=== PATIENT | male | born 1985 | race Caucasian/White ===

== ENCOUNTER 2020-12-08 18:06 | Inpatient (IN) | payer OTHER ==
[~2020-12-08] VITALS: Ht 177.8 cm; Wt 120.0 kg
--- NOTE | 2020-12-08 18:06 | NUR ---
PATIENT TO ROOM VIA EMS AND PHYSICIAN NOTIFIED OF PATIENT STATUS
[2020-12-08 18:55] LABS: HEMATOCRIT 39.7 % (39.0-50.0); IMMATURE GRANULOCYTES 0.6 % (0.0-5.0); MEAN CELL VOLUME 83.8 fL CALC (80.0-100.0); MEAN CORPUSCULAR HGB 29.5 pG CALC (26.0-32.0); MEAN CORPUSCULAR HGB CONC 35.3 g/dL CAL (32.0-36.0); NEUT# 4.47 thou/uL (1.82-7.42); RED BLOOD COUNT 4.74 mill/uL (4.70-6.10); RED CELL DISTRI WIDTH 13.1 % (11.5-15.5)
--- NOTE | 2020-12-08 18:55 | NUR ---
PATIENT IN BED ON NONREBREATHER. REPORT TO NEXT SHIFT RN.
--- NOTE | 2020-12-08 19:05 | NUR ---
OCC HENNY PHARMACEUTICAL SCIENTIST COUGH W/P/W SKIN ST NO ST T CHANGES.PT HAS PULLED OUT HIS RAC SALINE LOC.NEW IV SALINE LOCKS X2 IN L HAND AND L AC.PT SLOW TO VERBALLY RESPOND BUT RESPONSES ARE APPROP.NO WHEEZE NO DYSPNEA.
[2020-12-08 19:12] LABS: D-DIMER 1.3 mg/L (0.19-0.60)
[2020-12-08 19:13] LABS: ALBUMIN 3.6 g/dL (3.2-5.0); ALKALINE PHOSPHATASE 53 u/l (38-126); ANION GAP 15 (6-22 (CALC)); BILIRUBIN, TOTAL 0.8 mg/dL (0.0-1.4); BUN 14 mg/dL (9-20); BUN/CREATININE RATIO 19 (12-20 (CALC)); CARBON DIOXIDE 19 mmol/l (22-30); CHLORIDE 95 mmol/l (95-108); CREATININE 0.7 mg/dL (0.7-1.3); GFR > 60 ML/MIN (>=60 (CALC)); GFR FOR AFR.AMER. > 60 ML/MIN (>=60 (CALC)); LIPASE 153 u/l (23-300); MAGNESIUM 1.8 mg/dL (1.6-2.3); POTASSIUM 3.8 mmol/l (3.5-5.1); SGOT/AST 647 u/l (17-59); SODIUM 124 mmol/l (137-146); TOTAL PROTEIN 6.8 g/dL (6.3-8.2)
[2020-12-08 19:15] LABS: INTERNATIONAL NORMALIZED RATIO 1.2 RATIO (0.7-1.3); PROTHROMBIN TIME 12.2 SECONDS (9.0-12.5)
[2020-12-08 19:36] LABS: C-REACTIVE PROTEIN 18.1 mg/dL (0-0.9)
--- NOTE | 2020-12-08 20:25 | NUR ---
I ACCOMPANIED PT TO CT PT IS ON 100% NR MASK W/P/D SKIN PT COOPERATIVE IN MOVING TO CT STRETCHER.NO RESP DIFF WITH EXERTION NO COUGH.
[2020-12-08 20:30] LABS: CPK 24614 u/l (52-200)
--- NOTE | 2020-12-08 21:37 | NUR ---
PT CAUTIONED NOT TO PULL HIS MASK OFF SEVERAL TIMES.N5R NO TACHY RHYTHM.NO RESP DIFF.OCC COMMERCIAL PORTFOLIO MANAGER COUGH
[2020-12-08] MEDS ORDERED: LIPITOR20 M1 PO (21:41)
[2020-12-08] MEDS ORDERED: VIMPAT100 MG PO (21:41)
[2020-12-08] MEDS ORDERED: ZESTRIL10 M1 PO (21:42)
[2020-12-08] MEDS ORDERED: KEPPRA750 M2 PO (21:43)
[2020-12-08] MEDS ORDERED: PHENYTOIN EX100 M1 PO (21:44)
--- NOTE | 2020-12-08 22:40 | NUR ---
W/P/D SKIN A/O PT CAUTIONED NOT TO PICK AT HIS IV SITES.COOPERATES.
--- NOTE | 2020-12-08 22:45 | NUR ---
PHONE REPORT TO NURSE GALLEGOS IN ICU PT TRANSPORTED TO ICURM 8 IN IMPROVED STABLE CONDITION
--- NOTE | 2020-12-08 23:05 | NUR ---
35 year old male admitted to icu 8 per stretcher from er. stood to void without success then to bed in the prone position. sister is also admitted to this unit & said he was "special needs." o2 cont 100% nrb. pt needs several reminders to keep on. cafeteria monitor shows sinus rhythm hr 92. meds given & ivf began as ordered. history obtained per er record. fall & air/contact precautions cont.
[2020-12-08 23:15] VITALS: BP 115/71
--- NOTE | 2020-12-08 23:55 | NUR ---
pt turned self onto back. sao2 94%.
[2020-12-09] VITALS (18 sets, daily range): BP systolic 98–157; BP diastolic 62–90
--- NOTE | 2020-12-09 02:00 | NUR ---
removes nrb freq. requires freq observation as he is mentally challenged.
--- NOTE | 2020-12-09 04:00 | NUR ---
has been removing bp cuff & nrb freq. sao2 84-87%. rt notified.
--- NOTE | 2020-12-09 04:27 | NUR ---
respiratory was called and came with the Vapo. Patient on NRM with mask under his chin. The mask was placed back on his face. Spo2 went up to 91%. Patient keeps taking the mask off. Will need restraints to be able to wear the NRB. If unable to maintain spo2 above 86%, We will have to provide BIPAP/CPAP for him. Because of his condition, will be difficult to place him on vapo. He will not leave it on because of the noise
--- NOTE | 2020-12-09 06:00 | NUR ---
has frequently removed nrb this shift. need freq observation & redirection.
[2020-12-09 06:29] LABS: HEMATOCRIT 37.4 % (39.0-50.0); IMMATURE GRANULOCYTES 0.2 % (0.0-5.0); MEAN CELL VOLUME 85.2 fL CALC (80.0-100.0); MEAN CORPUSCULAR HGB 29.6 pG CALC (26.0-32.0); MEAN CORPUSCULAR HGB CONC 34.8 g/dL CAL (32.0-36.0); NEUT# 3.03 thou/uL (1.82-7.42); RED BLOOD COUNT 4.39 mill/uL (4.70-6.10); RED CELL DISTRI WIDTH 13.3 % (11.5-15.5)
[2020-12-09 06:39] LABS: URINE BILIRUBIN - DIPSTICK NEGATIVE (NEGATIVE); URINE BLOOD DIPSTICK LARGE (NEGATIVE); URINE COLOR YELLOW; URINE GLUCOSE - DIPSTICK NEGATIVE (NEGATIVE); URINE KETONE 15 mg/dL (NEGATIVE); URINE LEUK ESTERASE NEGATIVE (NEGATIVE); URINE PROTEIN - DIPSTICK NEGATIVE (NEG-TRACE); URINE UROBILINOGEN - DIPSTICK 0.2 E.U./dL (0.2)
[2020-12-09 06:52] LABS: ALKALINE PHOSPHATASE 46 u/l (38-126); BILIRUBIN, TOTAL 0.6 mg/dL (0.0-1.4); BUN 14 mg/dL (9-20); BUN/CREATININE RATIO 24 (12-20 (CALC)); CARBON DIOXIDE 22 mmol/l (22-30); CHLORIDE 105 mmol/l (95-108); CREATININE 0.6 mg/dL (0.7-1.3); GFR > 60 ML/MIN (>=60 (CALC)); GFR FOR AFR.AMER. > 60 ML/MIN (>=60 (CALC)); POTASSIUM 3.5 mmol/l (3.5-5.1); SGOT/AST 603 u/l (17-59)
[2020-12-09 06:56] LABS: ALBUMIN 2.8 g/dL (3.2-5.0); ANION GAP 10 (6-22 (CALC)); CPK 23085 u/l (52-200); SODIUM 133 mmol/l (137-146); TOTAL PROTEIN 5.4 g/dL (6.3-8.2)
[2020-12-09 06:58] LABS: URINE MUCUS FEW hpf (NONE-FEW); URINE NITRITE - DIPSTICK NEGATIVE (Negative); URINE SQUAMOUS EPITHELIAL CELL FEW EPI/hpf (0-FEW); URINE WBC 0-2 WBC/hpf (0-5)
[2020-12-09 07:06] LABS: C-REACTIVE PROTEIN 18.3 mg/dL (0-0.9)
--- NOTE | 2020-12-09 07:52 | NUR ---
PT IS ON 40L .100 VAPO, SAT IS 92%
--- NOTE | 2020-12-09 19:00 | NUR ---
REPORT RECEIVED FROM Miko MENJIVAR RN, CARE OF PT ASSUMED AT THIS TIME.
--- NOTE | 2020-12-09 19:16 | NUR ---
CALLED PT'S CONTACT IN CHART (PT'S MOTHER), NO ANSWER, VOICEMAIL WITH RETURN NUMBER LEFT.
--- NOTE | 2020-12-09 19:22 | NUR ---
SPOKE WITH DR. SMITH REGARDING PT'S HYPOXIA, NON-COMPLIANCE WITH 02 AND AGITIATION. ORDERS RECEIVED.
--- NOTE | 2020-12-09 19:24 | NUR ---
SPOKE WITH Alyse TRINIDAD CAR CLERK PULLMAN REGARDING HYPOXIA, ASKED Alyse TRINIDAD CAR CLERK PULLMAN TO COME ASSESS PT.
--- NOTE | 2020-12-09 19:50 | NUR ---
CPAP PLACED BY Alyse TRINIDAD PATTERNMAKER SAMPLE SETTING OF 12 AND 100%. SPO2 INCREASES T0 89-93%. PT REMAINS DYSPNIC, TACHYPNIC WITH RR 40S-50S.
--- NOTE | 2020-12-09 19:58 | NUR ---
SPOKE WITH PT'S PARENT VIA PHONE. PARENT UNDERSTAND CPAP IN USE AND B/L SOFT WRIST RESTRAINTS IN USE. PARENTS UNDERSTAND INTUBATION IS LIKELY PENDING AND ARE AGREEABLE. PHONE TAKEN INTO ROOM SO PT'S FATHER COULD SPEAK WITH HIM.
--- NOTE | 2020-12-09 20:00 | NUR ---
REPEAT ATIVAN DOSE ADMINISTERED, SEE E-MAY. B/L SOFT WRIST RESTRAINTS INITIATED.
--- NOTE | 2020-12-09 20:45 | NUR ---
PT REMAINS AGITATED AND PULLING AT RESTRAINTS, REACHING FOR CPAP OR SWINGING HEAD AROUND UNTIL CPAP HOSE DISCONNECTS FROM MASK. SP02 DECREASES INTO THE 50s WHEN PT MANAGES TO DISCONECT CPAP. UNABLE TO REDIRECT PT. ZYPREXA ADMINISTERED. SEE E-MAR.
[2020-12-10] VITALS (24 sets, daily range): BP systolic 86–188; BP diastolic 42–90
--- NOTE | 2020-12-10 01:30 | NUR ---
Peripheral IV started. IV access obtained with #20 AutoGuard at Left Wrist with 1 IV stick attempts. Flushes easily with good blood return.
--- NOTE | 2020-12-10 01:30 | NUR ---
PT'S WORK OF BREATHING REMAINS INCREASED. PT REMAINS TACHYPNIC AND DYSPNIC. ABDOMINAL RESPIRATION. PT IS IN APPARENT DISTRESS. DR. MONTANA NOTIFIED FOR INTUBATION.
--- NOTE | 2020-12-10 01:35 | NUR ---
DR. MONTANA ARRIVES TO ICU 8.
--- NOTE | 2020-12-10 01:45 | NUR ---
0140 ETOMIDATE 30MG IV ADMINISTERED. SUCCINYLCHOLINE 100MG SUBSEQUENTLY ADMINISTERED. RSI MEDICATIONS PER DR. MONTANA. 0142 PT SEDATED AND PARALYZED, 8.0 ET TUBE INSERTED W/O DIFFICULTY. 26CM AT LIP. INTUBATION PER DR. MONTANA. ET TUBE SECURED BY Alyse TRINIDAD RRT. 0145 PT ON VENT BY Alyse TRINIDAD WRONG ADDRESS CLERK AT THIS TIME.
--- NOTE | 2020-12-10 01:52 | NUR ---
PROPOFOL INFUSION INITIATED AT 10MCG/KG/M.
--- NOTE | 2020-12-10 01:55 | NUR ---
WHILE INSERTING OG TUBE PT HAD LARGE EMESIS OF DARK BROWN LIQUID. ORAL SUCTION BY SALEEM. ET TUBE SUCTION AND LAVAGE BY Alyse TRINIDAD RRT. OG TUBE INSERTED SUCCESFULLY AND CONNECTED TO LIS.
--- NOTE | 2020-12-10 02:17 | NUR ---
INTUBATED WITH A 8.0 ETT AT 26 CM OF THE LIPS. ETT PLACEMENT VERIFIED CO2 DETECTOR, LISTENING OF BREATH SOUND, AND THEN X-RAY. WILL CONTINUE TO MONITOR.
--- NOTE | 2020-12-10 02:36 | NUR ---
ABG BY Alyse TRINIDAD RRT.
--- NOTE | 2020-12-10 05:07 | NUR ---
ANABELLA-SYNEPHRINE GTT INITIATED TO KEEP SBP >/= 65.
--- NOTE | 2020-12-10 05:38 | NUR ---
Samira GUZMAN BASEBOARD HEATING INSTALLER IN ROOM COLLECTING AM LABS.
--- NOTE | 2020-12-10 05:47 | NUR ---
Alyse TRINIDAD POINT OF SALE ASSOCIATE IN ROOM COLLECTING ABG.
--- NOTE | 2020-12-10 05:57 | NUR ---
SPOKE WITH PT'S MOTHER, MRS. Daisha CRAWFORD. UPDATE PROVIDED ON PT'S INTUBATION AND CURRENT STATUS. VERBALIZES UNDERSTANDING. DENIES QUESTIONS AT THIS TIME.
[2020-12-10 06:19] LABS: HEMATOCRIT 34.5 % (39.0-50.0); HEMOGLOBIN 11.8 g/dl (14.0-18.0); IMMATURE GRANULOCYTES 0.5 % (0.0-5.0); MEAN CELL VOLUME 88.5 fL CALC (80.0-100.0); MEAN CORPUSCULAR HGB 30.3 pG CALC (26.0-32.0); MEAN CORPUSCULAR HGB CONC 34.2 g/dL CAL (32.0-36.0); NEUT# 7.41 thou/uL (1.82-7.42); RED BLOOD COUNT 3.9 mill/uL (4.70-6.10); RED CELL DISTRI WIDTH 13.9 % (11.5-15.5)
[2020-12-10 06:39] LABS: ALBUMIN 2.3 g/dL (3.2-5.0); ALKALINE PHOSPHATASE 45 u/l (38-126); ANION GAP 11 (6-22 (CALC)); BUN 10 mg/dL (9-20); BUN/CREATININE RATIO 17 (12-20 (CALC)); CARBON DIOXIDE 20 mmol/l (22-30); CHLORIDE 105 mmol/l (95-108); CREATININE 0.6 mg/dL (0.7-1.3); GFR > 60 ML/MIN (>=60 (CALC)); GFR FOR AFR.AMER. > 60 ML/MIN (>=60 (CALC)); POTASSIUM 3.8 mmol/l (3.5-5.1); SGOT/AST 374 u/l (17-59); SODIUM 132 mmol/l (137-146); TOTAL PROTEIN 4.6 g/dL (6.3-8.2)
[2020-12-10 06:40] LABS: BILIRUBIN, TOTAL 0.9 mg/dL (0.0-1.4)
--- NOTE | 2020-12-10 06:46 | NUR ---
SPOKE WITH DR. SMITH OVER TELEPHONE. UPDATES PROVIDED ON PT'S STATUS.
[2020-12-10 06:56] LABS: C-REACTIVE PROTEIN 17.7 mg/dL (0-0.9)
--- NOTE | 2020-12-10 19:00 | NUR ---
REPORT RECEIVED FROM Miko MENJIVAR RN AT BEDSIDE, CARE OF PT ASSUMED AT THIS TIME.
--- NOTE | 2020-12-10 20:05 | NUR ---
SPOKE WITH DR. SMITH, SUGGESTION OR GI PROPHYLAXIS PROVIDED. DR. SMITH TO ORDER VIA CPOE.
--- NOTE | 2020-12-10 20:18 | NUR ---
ORDER FOR PROTONIX IV RECEIVED VIA CPOE. SEE E-MAR.
--- NOTE | 2020-12-10 20:30 | NUR ---
RESIDUAL CHECK ON OG TUBE FEED 5ML. RATE INCREASED TO 25ML/H.
--- NOTE | 2020-12-10 22:11 | NUR ---
CALL RECEIVED FROM PT'S MOTHER. UPDATE ON PT'S STATUS PROVIDED.
[2020-12-11] VITALS (23 sets, daily range): BP systolic 87–125; BP diastolic 44–77
--- NOTE | 2020-12-11 04:27 | NUR ---
PT TRANSFERRED ONTO AIR MATTRESS. FIO2 DECREASED TO 90% BY Alyse TRINIDAD LICENSED AND CERTIFIED MIDWIFE. LABS COLLECTED FROM L-SC TLC. PROPOFOL TUBING CHANGED. RESIDUAL CHECK ON OG RESULTS IN 60+ ML OF TUBE FEED AND BILIOUS ASPIRATE. TUBE FEEDING HELD AT THIS TIME.
--- NOTE | 2020-12-11 05:24 | NUR ---
Ronnie TRINIDAD RECEPTION MANAGER IN ROOM COLLECTING ABG.
--- NOTE | 2020-12-11 05:33 | NUR ---
Daisha CRAMER RT AT BEDSIDE PERFORMING PCXR.
[2020-12-11 06:03] LABS: HEMATOCRIT 36.4 % (39.0-50.0); HEMOGLOBIN 12.1 g/dl (14.0-18.0); MEAN CELL VOLUME 88.6 fL CALC (80.0-100.0); MEAN CORPUSCULAR HGB 29.4 pG CALC (26.0-32.0); MEAN CORPUSCULAR HGB CONC 33.2 g/dL CAL (32.0-36.0); RED BLOOD COUNT 4.11 mill/uL (4.70-6.10)
[2020-12-11 06:21] LABS: ANION GAP 5 (6-22 (CALC)); BUN 5 mg/dL (9-20); BUN/CREATININE RATIO 9 (12-20 (CALC)); CARBON DIOXIDE 29 mmol/l (22-30); CHLORIDE 108 mmol/l (95-108); CREATININE 0.5 mg/dL (0.7-1.3); GFR > 60 ML/MIN (>=60 (CALC)); GFR FOR AFR.AMER. > 60 ML/MIN (>=60 (CALC)); MAGNESIUM 2.3 mg/dL (1.6-2.3); POTASSIUM 3.5 mmol/l (3.5-5.1); SODIUM 138 mmol/l (137-146)
[2020-12-11 09:41] LABS: ALBUMIN 2.3 g/dL (3.2-5.0); BILIRUBIN, TOTAL 0.6 mg/dL (0.0-1.4); TOTAL PROTEIN 4.7 g/dL (6.3-8.2)
--- NOTE | 2020-12-11 19:10 | NUR ---
vent cont assisted by pt. og cont to lis draining green. cardiac tech shows sinus rhythm hr 80. lt tlc in place. ivf infusing well. foote cath in place. urine clear yellow. bilat scds, wrist restraints. air mattress, fall & air/contact precautions cont. turned & repositioned. requires total care for all needs.
--- NOTE | 2020-12-11 22:00 | NUR ---
vent cont assisted by pt. foote draining well.
[2020-12-12] VITALS (23 sets, daily range): BP systolic 91–162; BP diastolic 50–94
--- NOTE | 2020-12-12 00:01 | NUR ---
vent cont assisted by pt. no distress.
--- NOTE | 2020-12-12 04:00 | NUR ---
blood drawn & sent to lab. bath given & linen changed x2 assists.
[2020-12-12 05:37] LABS: HEMATOCRIT 36.6 % (39.0-50.0); MEAN CELL VOLUME 89.3 fL CALC (80.0-100.0); MEAN CORPUSCULAR HGB 29.3 pG CALC (26.0-32.0); MEAN CORPUSCULAR HGB CONC 32.8 g/dL CAL (32.0-36.0); NEUT# 6.14 thou/uL (1.82-7.42); RED BLOOD COUNT 4.1 mill/uL (4.70-6.10); RED CELL DISTRI WIDTH 14.2 % (11.5-15.5)
--- NOTE | 2020-12-12 05:40 | NUR ---
rt here. abgs drawn.
--- NOTE | 2020-12-12 05:51 | NUR ---
xray here. pcxr obtained.
[2020-12-12 06:13] LABS: ALBUMIN 2.2 g/dL (3.2-5.0); ALKALINE PHOSPHATASE 63 u/l (38-126); ANION GAP 4 (6-22 (CALC)); BILIRUBIN, TOTAL 0.8 mg/dL (0.0-1.4); BUN 2 mg/dL (9-20); BUN/CREATININE RATIO 6 (12-20 (CALC)); CARBON DIOXIDE 31 mmol/l (22-30); CHLORIDE 111 mmol/l (95-108); CPK 853 u/l (52-200); CREATININE 0.4 mg/dL (0.7-1.3); GFR > 60 ML/MIN (>=60 (CALC)); GFR FOR AFR.AMER. > 60 ML/MIN (>=60 (CALC)); POTASSIUM 3.4 mmol/l (3.5-5.1); SGOT/AST 103 u/l (17-59); SODIUM 143 mmol/l (137-146); TOTAL PROTEIN 4.7 g/dL (6.3-8.2)
[2020-12-12 06:27] LABS: C-REACTIVE PROTEIN 19.3 mg/dL (0-0.9)
--- NOTE | 2020-12-12 07:38 | NUR ---
no changes at this time. bean snipper to monitor.
--- NOTE | 2020-12-12 07:48 | NUR ---
PT SEEN SEDATED, VENTED, AT REST IN THE BED IN NO ACUTE DISTRESS. LUNGS SOUND CLEAR, DIMINISHED, 100% FIO2. VERSED AND DIPRIVAN INCREASED SLIGHTLY PER ARMS MOVING UPWARD. RESTRAINTS ARE IN PLACE TO PROTECT TUBES FROM BEING PULLED.
--- NOTE | 2020-12-12 10:26 | NUR ---
no chnages at this time. manager ent to monitor.
--- NOTE | 2020-12-12 12:13 | NUR ---
LEVOPHED DRIP HAS BEEN TITRATED DOWNWARD PER ACCEPTABLE BLOOD PRESSURE. RATE WAS 18, DOWN TO 10 NOW, BP 165/86.
--- NOTE | 2020-12-12 13:35 | NUR ---
no changes at this time. nad. vss. director of strategic programs to monitor.
--- NOTE | 2020-12-12 15:10 | NUR ---
PT HAS BEEN WEANED FROM LEVOPHED THIS AFTERNOON, BP REMAINS NORMAL AT 124/68. PT TURNED FROM SIDE TO SIDE FOR SKIN PRESERVATION.
--- NOTE | 2020-12-12 19:30 | NUR ---
vent cont assisted by pt. og in place & clamped. hot stamp operator shows sinus rhythm. ivf infusing per lt subcl tlc. foote cath in place urine lt carmen. bilat scds, wrist restraints, air mattress & fall & air/contact precautions cont. turned & repositioned. requires total care for all needs.
--- NOTE | 2020-12-12 22:00 | NUR ---
vent cont assisted by pt. foote draining well.
[2020-12-13] VITALS (17 sets, daily range): BP systolic 85–186; BP diastolic 58–106
--- NOTE | 2020-12-13 00:01 | NUR ---
vent cont assisted by pt. body bumper shows sinus rhythm hr 84.
--- NOTE | 2020-12-13 02:00 | NUR ---
vent cont assisted by pt. no apparent distress.
--- NOTE | 2020-12-13 04:15 | NUR ---
blood drawn & sent to lab. bath & linen change x2 assists.
--- NOTE | 2020-12-13 04:50 | NUR ---
xray here. pcxr obtained.
[2020-12-13 05:30] LABS: HEMATOCRIT 38.9 % (39.0-50.0); HEMOGLOBIN 12.3 g/dl (14.0-18.0); IMMATURE GRANULOCYTES 1.2 % (0.0-5.0); MEAN CELL VOLUME 93.1 fL CALC (80.0-100.0); MEAN CORPUSCULAR HGB 29.4 pG CALC (26.0-32.0); MEAN CORPUSCULAR HGB CONC 31.6 g/dL CAL (32.0-36.0); NEUT# 8.32 thou/uL (1.82-7.42); RED BLOOD COUNT 4.18 mill/uL (4.70-6.10); RED CELL DISTRI WIDTH 14.9 % (11.5-15.5)
--- NOTE | 2020-12-13 05:35 | NUR ---
rt here. abgs drawn.
[2020-12-13 06:00] LABS: ALBUMIN 2.1 g/dL (3.2-5.0); ALKALINE PHOSPHATASE 66 u/l (38-126); BILIRUBIN, TOTAL 0.7 mg/dL (0.0-1.4); BUN 9 mg/dL (9-20); BUN/CREATININE RATIO 24 (12-20 (CALC)); CARBON DIOXIDE 29 mmol/l (22-30); CHLORIDE 112 mmol/l (95-108); CREATININE 0.4 mg/dL (0.7-1.3); GFR > 60 ML/MIN (>=60 (CALC)); GFR FOR AFR.AMER. > 60 ML/MIN (>=60 (CALC)); SGOT/AST 153 u/l (17-59); SODIUM 142 mmol/l (137-146); TOTAL PROTEIN 4.6 g/dL (6.3-8.2)
--- NOTE | 2020-12-13 06:05 | NUR ---
brian(radiology) called this residential mortgage underwriter. said "pt is nearly extubated & tube needs to be advanced 6cm." sherrill notified.
[2020-12-13 06:18] LABS: ANION GAP 6 (6-22 (CALC)); POTASSIUM 4.6 mmol/l (3.5-5.1)
--- NOTE | 2020-12-13 06:21 | NUR ---
aminah here. tube advanced;)
--- NOTE | 2020-12-13 06:33 | NUR ---
no changes in vent paramters at this time. pan puller to monitor.
--- NOTE | 2020-12-13 08:00 | NUR ---
PATIENT IS VENTED AND SEDATED. TITRATING SEDATION DOWN PER HOSPITAL PROTOCOL TO DO A AWAKENING TRAIL FOR HIM. TITRATED LEVO DRIP DOWN PER HOSPITAL'S PROTOCOL, WAS ABLE TO TURN OFF DUE TO INCREASED BP. 2MM PERRLA BILATERAL EYES. DRY CRACKED LIPS, 26CM TAPED AT THE LIP. DIMINSHED LUNG SOUNDS THROUGHOUT. NORMAL HEART SOUNDS, NORMAL SINUS RYTHEM. SOFT OBESE ABDOMEN. NO BOWEL SOUNDS IN UPPER QUADS, LOWER QUADS HYPOACTIVE. PATIENT IS NOT RECEIVING TUBE FEEDS DUE TO INCREASED RESIDUAL YESTERDAY. EDEMA 1+ BILAT ARMS/HANDS/FEET. STRONG PULSES. SCDS ARE IN PLACED. DARK BROWN URINE. ORAL CARE PROVIDED. RESTRAINTS ARE ON, GOOD FIT, NO ISSUES. SAFETY MEASURES IN PLACE. WILL CONTINUE TO MONITOR PER [facility]'S PROTOCOL.
--- NOTE | 2020-12-13 10:00 | NUR ---
CONTINUE TO TITRATE SEDATION DRIPS DOWN PER HOSPITAL'S PROTOCOL.
--- NOTE | 2020-12-13 10:30 | NUR ---
no changes at this time. nad. vss. wafer production worker to monitor.
--- NOTE | 2020-12-13 11:16 | NUR ---
CODE WAS CALLED.
--- NOTE | 2020-12-13 11:24 | NUR ---
CALLED FAMILY (MOM AND DAD) AND INFORMED THEM ABOUT WHAT WAS GOING ON. THEY STATED "CONTINUE DOING WHAT YOU CAN TO SAVE IF, IF IT DOESNT WORK THEN IT DOESNT WORK" PER HIS FATHER.
--- NOTE | 2020-12-13 11:42 | NUR ---
PATIENT WAS PRONOUNCED AND FAMILY WAS INFORMED BY DOCTOR SMITH VIA PHONE.
--- NOTE | 2020-12-13 12:15 | NUR ---
CALLED [employer] SPOKE TO TOD, SHE STATED THAT WE WILL NOT BE GETTING A CALL BACK DUE TO HIM HAVING COVID. REFERENCE NUMBER [id number].
--- NOTE | 2020-12-13 12:18 | NUR ---
PATIENT'S FAMILY CALLED, ASKED THEM IF THEY HAVE A HOME ARRANGMENT IN [place]. INFORMED THEM ABOUT A HOME IN [facility] SINCE THEY LIVE IN [place]. THE FATHER TOLD ME "WE WILL LOOK AROUND AND DISCUSS IT THEN GIVE YOU A CALL BACK".
--- NOTE | 2020-12-13 13:00 | NUR ---
pt this afternoon.
--- NOTE | 2020-12-13 15:31 | NUR ---
CALLED PATIENT'S PARENTS ABOUT ANY UPDATES. THEY DO NOT KNOW, GAVE THEM SOME ADVICE. THEY ARE WANTING TO COME SEE HIM PRIOR TO THEM TAKING THE BODY.
--- NOTE | 2020-12-13 16:07 | NUR ---
SPOKE TO [employer] REPORT DEVELOPER ABOUT THE PARENTS VISITING, WAS INFORMED THAT IT WAS NOT ALLOWED. INFORMED THE PARENTS.
--- NOTE | 2020-12-13 16:12 | NUR ---
CALLED [facility], STATED HE CAN COME AND ORDER SCHEDULE CLERK THE BODY IN 1 TO 2 HOURS.
== END 2020-12-13 18:25 | disposition expired | DRG 208 ==
LOC: EDBD 18:06 → ED 18:06 → ICU 21:11
PROVIDERS: Family Medicine; Hospitalist; ADMIT Internal Medicine; ATTEND Internal Medicine
PROC: XW033E5 Introduction of Remdesivir Anti-infective into Peripheral Vein, Percutaneous Approach, New Technology Group 5 (ICD-10-PCS; principal; 2020-12-09)
PROC: 0T9B70Z Drainage of Bladder with Drainage Device, Via Natural or Artificial Opening (ICD-10-PCS; 2020-12-09)
PROC: 5A09357 Assistance with Respiratory Ventilation, Less than 24 Consecutive Hours, Continuous Positive Airway Pressure (ICD-10-PCS; 2020-12-09)
PROC: 5A1945Z Respiratory Ventilation, 24-96 Consecutive Hours (ICD-10-PCS; 2020-12-10)
PROC: 0BH17EZ Insertion of Endotracheal Airway into Trachea, Via Natural or Artificial Opening (ICD-10-PCS; 2020-12-10)
PROC: 05H433Z Insertion of Infusion Device into Left Innominate Vein, Percutaneous Approach (ICD-10-PCS; 2020-12-10)
PROC: 0B21XEZ Change Endotracheal Airway in Trachea, External Approach (ICD-10-PCS; 2020-12-13)
PROC: 5A12012 Performance of Cardiac Output, Single, Manual (ICD-10-PCS; 2020-12-13)
DX: U07.1 COVID-19 (principal); J12.82 Pneumonia due to coronavirus disease 2019; J96.01 Acute respiratory failure with hypoxia; M62.82 Rhabdomyolysis; E87.1 Hypo-osmolality and hyponatremia; E87.2 Acidosis; I10 Essential (primary) hypertension; E78.5 Hyperlipidemia, unspecified; R56.9 Unspecified convulsions; Z78.1 Physical restraint status
CPT/HCPCS: J0131; J1650; J1953; J2060; J2250; Q9967; S0164; S0166